=== PATIENT | female | born 1950 | race Caucasian/White ===

== ENCOUNTER 2023-12-16 07:34 | Day surgery (SDC) | payer OTHER, SELFPAY ==
[2023-12-16] VITALS (9 sets, daily range): BP systolic 117–181; BP diastolic 53–84
[2023-12-16] MEDS: LOW STRENGTH ASPIRIN 81 MG PO (08:10)
[2023-12-16] MEDS: NSS 291 ML IV (08:12)
[2023-12-16 08:19] LABS: Glucose - Point of Care 157 mg/dl (70-99)
[2023-12-16] MEDS: NSS 1000 IV (09:25)
--- NOTE | 2023-12-16 09:35 | ITS.CL.CATH ---
[employer] - Catheterization
Cardiac Catheterization
Procedure Report:
CARDIAC CATHETERIZATION REPORT
Date of Procedure: 12/16/2023
Referring: Mark Bautista MD
Indication: Exertional dyspnea
HEMODYNAMIC DATA
AO: 180/88
LV: 180/20
LEFT VENTRICULOGRAPHY: Normal left ventricular wall motion with EF 59%
CORONARY ANGIOGRAPHY
Dominance: Left
Left Main: Normal
LAD: Mild calcification with focal 30% mid LAD stenosis just distal to the takeoff of the large second diagonal branch. The remainder of the LAD system has trivial luminal disease.
Circumflex: Normal dominant vessel
RCA: Normal nondominant vessel
Closure Device: None-the procedure was performed via the right radial artery. The Michel's test was normal prior to the procedure.
Radiation (mGy): 380
DAP (cm2.Gy): 26.6
Fluoroscopy time: 7.3 minutes
CONCLUSIONS
1: Systemic hypertension
2: Elevated LVEDP
3. Very mild single-vessel CAD as described
4. Recommend control of hypertension along with ASA/statin with goal LDL less than 70
Copy to: Mark Bautista MD, Javier Siddiqi MD
Chris Pineda MD, [facility], [facility]
== END 2023-12-16 12:15 | disposition home or self-care (01) ==
LOC: CATH 07:34
PROVIDERS: ATTENDING PHYSICIAN Internal Medicine Cardiovascular Disease; FAMILY PHYSICIAN Internal Medicine
DX: I25.10 Atherosclerotic heart disease of native coronary artery without angina pectoris (principal); R06.09 Other forms of dyspnea; I10 Essential (primary) hypertension; E78.5 Hyperlipidemia, unspecified; E11.9 Type 2 diabetes mellitus without complications; Z79.82 Long term (current) use of aspirin; Z79.84 Long term (current) use of oral hypoglycemic drugs; Z79.85 Long-term (current) use of injectable non-insulin antidiabetic drugs
CPT/HCPCS: 93458; 82962; C1894; Q9967